=== PATIENT | male | born 1970 | race Two or more races ===

== ENCOUNTER 2018-11-08 09:18 | Emergency (ER) | payer MEDICAID, OTHER ==
[~2018-11-08] VITALS: Ht 170.2 cm; Wt 103.0 kg
[2018-11-08 09:58] VITALS: BP 113/78
[2018-11-08] MEDS ORDERED: KETOROLAC TROMETH 60MG/2ML VIAL IM ONE (10:30)
== END 2018-11-08 12:38 | disposition home or self-care (01) ==
LOC: EDSEX 09:18 → ER 09:18
DX: M54.5 Low back pain (principal); G89.29 Other chronic pain; M19.90 Unspecified osteoarthritis, unspecified site
CPT/HCPCS: 72100; 96372; 99283; J1885